=== PATIENT | female | born 1935 | race Caucasian/White ===

== ENCOUNTER 2016-08-05 15:03 | Emergency (ER) | payer OTHER ==
[~2016-08-05] VITALS: Ht 170.2 cm; Wt 83.1 kg
[~2016-08-05 15:03] MED LIST: AMARYL1 MG PO; AMARYL2 MG PO; AMLODIPINE BESY10 MG PO; ASPIRIN81 M2 PO; ATARAX,VISTARIL25 MG PO; ATIVAN1 MG PO; AVAPRO300 MG PO; BUMETANIDE0.5 M1 PO; BUMETANIDE0.5 MG PO; BUMEX0.5 MG PO; CIPRO500 MG PO; CLONIDINE HCL0.1 MG PO; COUMADIN,JANTO2.5 MG PO; COUMADIN,JANTOVE5 MG PO; Coumadin,Jantoven PO; DIGOX125 MCG PO; DIGOX250 MCG PO; DIGOXIN125 MCG PO; ELIQUIS5 MG PO; FLEXERIL10 MG PO; GLUCOPHAGE1000 MG PO; K-DUR10 ME1 PO; KLOR-CON M1010 MEQ PO; LANOXIN,DIGIT0.25 MG PO; LISINOPRIL10 MG PO; LOVAZA1 GM PO; METFORMIN HCL1000 M1 PO; METFORMIN HCL1000 MG PO; METOPROLOL SUC100 MG PO; METOPROLOL SUCC25 MG PO; NORCO 5/3251 TABLET PO; NORVASC2.5 MG PO; OMEGA-3 ACID ETH1 GM PO; OXAZEPAM15 MG PO; PERCOCET 5/31 TABLET PO; PRADAXA75 MG PO; PREDNISONE10 MG PO; PROCARDIA XL90 MG PO; PROTONIX40 MG PO; SERAX15 MG PO; TOPROL XL100 MG PO; TOPROL XL50 MG PO; ULTRAM50 MG PO; VICODIN 5-3001 EACH PO; WARFARIN SODIUM5 MG; WELCHOL625 MG PO; ZESTRIL10 MG PO; Zyvox PO
[2016-08-05] MEDS ORDERED: TYLENOL WITH C1 EACH PO (18:15)
[2016-08-05] MEDS ORDERED: MOTRIN400 MG PO (18:16)
[2016-08-05 18:41] VITALS: BP 158/85
== END 2016-08-05 18:42 | disposition home or self-care (01) ==
LOC: EME 15:03
DX: S46.911A Strain of unspecified muscle, fascia and tendon at shoulder and upper arm level, right arm, initial encounter (principal); M54.2 Cervicalgia; X50.9XXA Other and unspecified overexertion or strenuous movements or postures, initial encounter; I10 Essential (primary) hypertension; E11.9 Type 2 diabetes mellitus without complications; Z79.01 Long term (current) use of anticoagulants; Z87.891 Personal history of nicotine dependence
CPT/HCPCS: 73030; 99281; 99284

== ENCOUNTER 2017-01-13 16:07 | Emergency (ER) | payer OTHER ==
[~2017-01-13] VITALS: Ht 165.1 cm; Wt 83.1 kg
[~2017-01-13 16:07] MED LIST changes: +MOTRIN400 MG PO; +TYLENOL WITH C1 EACH PO
[2017-01-13 17:28] LABS: ADD MIUA? YES; BILIRUBIN NEGATIVE; BLOOD SMALL; COLOR YELLOW ((YELLOW)); GLUCOSE (STRIP) NEGATIVE; KETONES NEGATIVE; LEUKOCYTES NEGATIVE; NITRITE NEGATIVE; PROTEIN (STRIP) 30; SPECIFIC GRAVITY 1.015 (1.000-1.030)
[2017-01-13 17:33] LABS: BACTERIA NONE SEEN /HPF; EPITHELIAL CELLS 1+ /HPF; MUCUS TRACE /LPF; RED BLOOD CELLS 0-5 /HPF (0-5); UCUL ADDED? NO; WHITE BLOOD CELLS 0-5 /HPF (0-5)
[2017-01-13 18:19] LABS: EOSINOPHIL (%) 0.7 % (0-5); HEMATOCRIT 38.9 % (36.0-46.0); IMMATURE GRANULOCYTE (%) 0.2 % (0.0-0.7); INSTRUMENT ABS NEUTROPHIL CT 3.2 K/uL; LYMPHOCYTE COUNT 1.9 K/uL (1.0-2.8); MCH 31.4 PG (29.0-34.0); MCHC 33.9 G/DL (30.0-36.0); MCV 92.6 FL (83-99); MEAN PLAT.VOLUME 10.5 uM^3 (9.5-12.4); MONOCYTE (%) 7.1 % (3-12); MONOCYTE COUNT 0.4 K/uL (0-0.8); NEUTROPHIL (%) 57.1 % (45-76); NEUTROPHIL COUNT 3.2 K/uL (1.8-6.4); PLATELET COUNT 135 K/uL (156-360); RBC DIS.WIDTH-CV 12.5 % (11.8-14.6); RBC DIS.WIDTH-SD 42.5 % (39-53); WHITE BLOOD COUNT 5.5 K/uL (4.1-10.2)
[2017-01-13 18:45] LABS: CHLORIDE 104 mEq/L (99-109); POTASSIUM 4.3 mEq/L (3.7-5.4); SODIUM 141 mEq/L (136-147)
[2017-01-13 18:47] LABS: GLUCOSE 97 mg/dL (70-99)
[2017-01-13 18:48] LABS: ANION GAP 14 MEQ/L (2-14)
[2017-01-13 18:51] LABS: GFR ESTIMATE (CALCULATED) 57 mL/min/
[2017-01-13 18:52] LABS: UREA NITROGEN (BUN) 17 mg/dL (9-23)
[2017-01-13 18:59] LABS: DIGOXIN < 0.3 ng/mL (0.8-2.0)
[2017-01-13] MEDS ORDERED: ULTRAM50 MG PO (19:12)
[2017-01-13 19:55] VITALS: BP 170/98
== END 2017-01-13 19:55 | disposition home or self-care (01) ==
LOC: EME 16:07
PROVIDERS: Physician Assistant
DX: E11.42 Type 2 diabetes mellitus with diabetic polyneuropathy (principal); E11.622 Type 2 diabetes mellitus with other skin ulcer; L97.819 Non-pressure chronic ulcer of other part of right lower leg with unspecified severity; Z79.84 Long term (current) use of oral hypoglycemic drugs; I11.0 Hypertensive heart disease with heart failure; I50.9 Heart failure, unspecified; I48.91 Unspecified atrial fibrillation; Z79.01 Long term (current) use of anticoagulants; J45.909 Unspecified asthma, uncomplicated; K21.9 Gastro-esophageal reflux disease without esophagitis; F32.9 Major depressive disorder, single episode, unspecified; F41.9 Anxiety disorder, unspecified; Z85.038 Personal history of other malignant neoplasm of large intestine; Z90.710 Acquired absence of both cervix and uterus; Z87.891 Personal history of nicotine dependence
CPT/HCPCS: 80048; 80162; 81003; 83880; 85025; 99281; 99284

== ENCOUNTER 2017-03-08 21:19 | Inpatient (IN) | payer OTHER ==
[~2017-03-08] VITALS: Ht 170.2 cm; Wt 88.1 kg
[~2017-03-08 21:19] MED LIST changes: -ZESTRIL10 MG PO; +ZESTRIL20 MG PO
[2017-03-08 22:49] LABS: HEMATOCRIT 37.7 % (36.0-46.0); MCH 31.4 PG (29.0-34.0); MCHC 33.2 G/DL (30.0-36.0); MCV 94.7 FL (83-99); MEAN PLAT.VOLUME 9.7 uM^3 (9.5-12.4); PLATELET COUNT 132 K/uL (156-360); RBC DIS.WIDTH-CV 12.8 % (11.8-14.6); RED BLOOD COUNT 3.98 M/uL (3.80-5.20); WHITE BLOOD COUNT 8.4 K/uL (4.1-10.2)
[2017-03-08 22:56] LABS: CHLORIDE 108 mEq/L (99-109); POTASSIUM 4.1 mEq/L (3.7-5.4); SODIUM 140 mEq/L (136-147)
[2017-03-08 22:57] LABS: GLUCOSE 170 mg/dL (70-99)
[2017-03-08 22:59] LABS: ANION GAP 12 MEQ/L (2-14)
[2017-03-08 23:00] LABS: INTER. NORMALIZED RATIO 1.3; PROTHROMBIN TIME 14.7 SEC (10.2-12.9)
[2017-03-08 23:01] LABS: GFR ESTIMATE (CALCULATED) > 59 mL/min/
[2017-03-08 23:02] LABS: UREA NITROGEN (BUN) 19 mg/dL (9-23)
[2017-03-08] MEDS ORDERED: TOPROL XL25 MG PO (23:44)
[2017-03-08] MEDS ORDERED: ASPIR 8181 M1 PO (23:44)
[2017-03-08] MEDS ORDERED: NIFEDIPINE ER90 MG PO (23:44)
[2017-03-08] MEDS ORDERED: KLOR-CON M1010 MEQ PO (23:46)
[2017-03-08] MEDS ORDERED: REPAGLINIDE0.5 MG PO (23:46)
[2017-03-08] MEDS ORDERED: VERAPAMIL SR240 MG PO (23:46)
[2017-03-09] VITALS (24 sets, daily range): BP systolic 139–196; BP diastolic 46–89
[2017-03-09 02:45] LABS: METH RESISTANT S AUREUS PCR NEGATIVE (NEGATIVE); PROBE CHECK PASS; SPECIMEN PROCESSING CONTROL PASS
[2017-03-09 06:01] LABS: HEMATOCRIT 34.5 % (36.0-46.0); MCH 31.8 PG (29.0-34.0); MCHC 33.3 G/DL (30.0-36.0); MCV 95.3 FL (83-99); MEAN PLAT.VOLUME 10.4 uM^3 (9.5-12.4); PLATELET COUNT 133 K/uL (156-360); RBC DIS.WIDTH-CV 12.8 % (11.8-14.6); RBC DIS.WIDTH-SD 44.3 % (39-53); RED BLOOD COUNT 3.62 M/uL (3.80-5.20); WHITE BLOOD COUNT 6.6 K/uL (4.1-10.2)
[2017-03-09 06:29] LABS: ALKALINE PHOSPHATASE 75 IU/L (3-129); ANION GAP 8 MEQ/L (2-14); CHLORIDE 107 MEQ/L (99-109); GFR ESTIMATE (CALCULATED) > 59 mL/min/; GLUCOSE 150 mg/dL (70-99); POTASSIUM 4.9 MEQ/L (3.7-5.4); SAMPLE HEMOLYSIS CHECK 0; SAMPLE ICTERIC CHECK 0; SAMPLE LIPEMIA CHECK 0; SODIUM 141 MEQ/L (136-147); TOTAL BILIRUBIN 1.3 MG/DL (0.0-1.0); UREA NITROGEN (BUN) 18 mg/dL (9-23)
[2017-03-09 10:04] LABS: INTER. NORMALIZED RATIO 1.1; PROTHROMBIN TIME 12.3 SEC (10.2-12.9)
[2017-03-09 10:05] LABS: PTT 29.4 SEC (25-37)
[2017-03-09 12:06] LABS: POINT-OF-CARE METER ID UU13113731
[2017-03-09 17:54] LABS: POINT-OF-CARE METER ID UU13113731
[2017-03-10] VITALS (9 sets, daily range): BP systolic 138–180; BP diastolic 53–82
[2017-03-10 02:05] LABS: POINT-OF-CARE METER ID UU14208751; POINT-OF-CARE USER ID PHATLC
[2017-03-10 05:40] LABS: EOSINOPHIL COUNT 0.1 K/uL (0-0.3); HEMATOCRIT 33.2 % (36.0-46.0); IMMATURE GRANULOCYTE (%) 0.3 % (0.0-0.7); INSTRUMENT ABS NEUTROPHIL CT 3.7 K/uL; LYMPHOCYTE COUNT 1.8 K/uL (1.0-2.8); MCH 32.3 PG (29.0-34.0); MCHC 33.7 G/DL (30.0-36.0); MCV 95.7 FL (83-99); MEAN PLAT.VOLUME 10.1 uM^3 (9.5-12.4); MONOCYTE (%) 7.6 % (3-12); MONOCYTE COUNT 0.5 K/uL (0-0.8); NEUTROPHIL COUNT 3.7 K/uL (1.8-6.4); PLATELET COUNT 115 K/uL (156-360); RBC DIS.WIDTH-CV 13.1 % (11.8-14.6); RBC DIS.WIDTH-SD 45.6 % (39-53); RED BLOOD COUNT 3.47 M/uL (3.80-5.20)
[2017-03-10 06:04] LABS: ANION GAP 8 MEQ/L (2-14); CHLORIDE 108 MEQ/L (99-109); GFR ESTIMATE (CALCULATED) > 59 mL/min/; GLUCOSE 120 mg/dL (70-99); MAGNESIUM 1.8 mg/dl (1.3-2.7); SAMPLE HEMOLYSIS CHECK 0; SAMPLE ICTERIC CHECK 0; SAMPLE LIPEMIA CHECK 0; SODIUM 142 MEQ/L (136-147); UREA NITROGEN (BUN) 17 mg/dL (9-23)
[2017-03-10 09:01] LABS: POINT-OF-CARE METER ID UU14208751
[2017-03-10 16:35] LABS: POINT-OF-CARE METER ID UU14188577
[2017-03-10 23:41] LABS: POINT-OF-CARE METER ID UU14188577
[2017-03-11 03:53] VITALS: BP 139/63
[2017-03-11 07:00] LABS: POINT-OF-CARE METER ID UU14117124
[2017-03-11 08:31] VITALS: BP 162/74
[2017-03-11 11:40] LABS: POINT-OF-CARE METER ID UU14188577
[2017-03-11 12:04] VITALS: BP 156/58
[2017-03-11] MEDS ORDERED: TYLENOL WITH C1 EACH PO (14:57)
[2017-03-11 16:37] VITALS: BP 137/65
[2017-03-11 16:47] LABS: POINT-OF-CARE METER ID UU14188577
== END 2017-03-11 19:51 | disposition home health service (06) | DRG 963 ==
LOC: EME → EDBD 21:19 → EDOF 23:21 → 4WEST 23:21 → ENRESERV 23:22 → 4WEST 03-09 01:08 → ENRESERV 03-10 07:06 → 3EAST 03-10 12:08
PROVIDERS: Emergency Medicine; Internal Medicine Critical Care Medicine; Specialist; Student in an Organized Health Care Education/Training Program
DX: S06.6X0A Traumatic subarachnoid hemorrhage without loss of consciousness, initial encounter (principal); S01.01XA Laceration without foreign body of scalp, initial encounter; S32.10XA Unspecified fracture of sacrum, initial encounter for closed fracture; W01.0XXA Fall on same level from slipping, tripping and stumbling without subsequent striking against object, initial encounter; G93.6 Cerebral edema; I16.0 Hypertensive urgency; I10 Essential (primary) hypertension; I48.2 Chronic atrial fibrillation; E11.9 Type 2 diabetes mellitus without complications; E78.5 Hyperlipidemia, unspecified; J45.909 Unspecified asthma, uncomplicated; K21.9 Gastro-esophageal reflux disease without esophagitis; R00.1 Bradycardia, unspecified; M85.80 Other specified disorders of bone density and structure, unspecified site; M54.5 Low back pain; M19.90 Unspecified osteoarthritis, unspecified site; F41.9 Anxiety disorder, unspecified; F32.9 Major depressive disorder, single episode, unspecified; Z79.01 Long term (current) use of anticoagulants; Z85.038 Personal history of other malignant neoplasm of large intestine; Z86.73 Personal history of transient ischemic attack (TIA), and cerebral infarction without residual deficits; Z87.891 Personal history of nicotine dependence
CPT/HCPCS: 70450; 72131; 80048; 80053; 80162; 82948; 83735; 84100; 85025; 85027; 85610; 85730; 87641; 99281; 99285; C9132; J1815; J7050

== ENCOUNTER 2017-07-19 15:07 | Emergency (ER) | payer OTHER ==
[~2017-07-19] VITALS: Ht 170.2 cm; Wt 90.3 kg
[~2017-07-19 15:07] MED LIST changes: +ASPIR 8181 M1 PO; +NIFEDIPINE ER90 MG PO; +REPAGLINIDE0.5 MG PO; +TOPROL XL25 MG PO; +VERAPAMIL SR240 MG PO
[2017-07-19 17:13] LABS: HEMATOCRIT 38.5 % (36.0-46.0); HEMOGLOBIN 12.9 G/DL (11.9-15.5); MCHC 33.5 G/DL (30.0-36.0); MCV 92.5 FL (83-99); PLATELET COUNT 186 K/uL (156-360); RBC DIS.WIDTH-CV 13.3 % (11.8-14.6); RBC DIS.WIDTH-SD 45.2 % (39-53); RED BLOOD COUNT 4.16 M/uL (3.80-5.20); WHITE BLOOD COUNT 9.8 K/uL (4.1-10.2)
[2017-07-19 17:22] LABS: CHLORIDE 104 mEq/L (99-109); POTASSIUM 4.5 mEq/L (3.7-5.4); SODIUM 133 mEq/L (136-147)
[2017-07-19 17:23] LABS: GLUCOSE 156 mg/dL (70-99)
[2017-07-19 17:27] LABS: CREATININE 2.1 mg/dL (0.6-1.3); GFR ESTIMATE (CALCULATED) 24 mL/min/
[2017-07-19 17:28] LABS: UREA NITROGEN (BUN) 39 mg/dL (9-23)
[2017-07-19 21:43] LABS: TROP-I INTERPRETATION NEGATIVE; TROPONIN-I < 0.01 ng/mL (0.0-0.30)
[2017-07-19 22:45] LABS: APPEARANCE CLOUDY ((CLEAR)); BILIRUBIN SMALL; BLOOD NEGATIVE; COLOR AMBER ((YELLOW)); GLUCOSE (STRIP) 50; KETONES NEGATIVE; LEUKOCYTES SMALL; NITRITE NEGATIVE; PROTEIN (STRIP) 30; SPECIFIC GRAVITY 1.025 (1.000-1.030)
[2017-07-19 23:04] LABS: RED BLOOD CELLS NONE SEEN /HPF (0-5); WHITE BLOOD CELLS 20-30 /HPF (0-5)
[2017-07-19 23:05] LABS: BACTERIA 2+ /HPF; EPITHELIAL CELLS 2+ /HPF; MUCUS RARE /LPF; UCUL ADDED? YES
[2017-07-19 23:06] LABS: AMORPHOUS URATES CRYSTALS 1+; CALCIUM OXALATE CRYSTALS 1+ /HPF; HYALINE CASTS RARE /LPF
[2017-07-19] MEDS ORDERED: KEFLEX500 MG PO (23:32)
[2017-07-20 00:34] VITALS: BP 117/67
== END 2017-07-20 00:38 | disposition home or self-care (01) ==
LOC: EME 15:07
PROVIDERS: Emergency Medicine
DX: N39.0 Urinary tract infection, site not specified (principal); E86.0 Dehydration; I10 Essential (primary) hypertension; K21.9 Gastro-esophageal reflux disease without esophagitis; J45.909 Unspecified asthma, uncomplicated; M19.90 Unspecified osteoarthritis, unspecified site; F41.9 Anxiety disorder, unspecified; F32.9 Major depressive disorder, single episode, unspecified; Z87.891 Personal history of nicotine dependence; Z79.01 Long term (current) use of anticoagulants; Z86.73 Personal history of transient ischemic attack (TIA), and cerebral infarction without residual deficits; Z85.038 Personal history of other malignant neoplasm of large intestine; Z90.49 Acquired absence of other specified parts of digestive tract; Z88.5 Allergy status to narcotic agent
CPT/HCPCS: 70450; 71046; 80048; 81003; 83880; 84484; 85027; 87086; 93005; 99281; 99285; J0696; J7030

== ENCOUNTER 2017-08-29 20:33 | Inpatient (IN) | payer OTHER ==
[~2017-08-29] VITALS: Ht 170.2 cm; Wt 82.4 kg
[~2017-08-29 20:33] MED LIST changes: +KEFLEX500 MG PO
[2017-08-29 21:21] LABS: HEMATOCRIT 46.2 % (36.0-46.0); HEMOGLOBIN 16.1 G/DL (11.9-15.5); MCH 30.7 PG (29.0-34.0); MCHC 34.8 G/DL (30.0-36.0); MCV 88.2 FL (83-99); RBC DIS.WIDTH-CV 12.9 % (11.8-14.6); RBC DIS.WIDTH-SD 42.1 % (39-53); RED BLOOD COUNT 5.24 M/uL (3.80-5.20)
[2017-08-29 21:22] LABS: INTER. NORMALIZED RATIO 1.3
[2017-08-29 21:23] LABS: ALBUMIN 3.5 g/dL (3.2-4.8); CHLORIDE 100 mEq/L (99-109); POTASSIUM 3.2 mEq/L (3.7-5.4); SODIUM 136 mEq/L (136-147)
[2017-08-29 21:24] LABS: MAGNESIUM 1.6 mg/dL (1.3-2.7)
[2017-08-29 21:25] LABS: PTT 25.5 SEC (25-37)
[2017-08-29 21:26] LABS: GLUCOSE 198 mg/dL (70-99); TOTAL PROTEIN 6.8 g/dL (6.4-8.3)
[2017-08-29 21:28] LABS: TOTAL BILIRUBIN 2.6 mg/dL (0.0-1.0)
[2017-08-29 21:29] LABS: ALKALINE PHOSPHATASE 116 IU/L (3-129)
[2017-08-29 21:30] LABS: CREATININE 1.1 mg/dL (0.6-1.3); GFR ESTIMATE (CALCULATED) 51 mL/min/
[2017-08-29 21:31] LABS: AST (GOT) 31 IU/L (2-34); UREA NITROGEN (BUN) 27 mg/dL (9-23)
[2017-08-29 21:32] LABS: ALT (GPT) 39 IU/L (3-49)
[2017-08-29 21:33] LABS: LIPASE 15 U/L (1.0-51.0)
[2017-08-29 21:40] LABS: DIGOXIN < 0.3 ng/mL (0.8-2.0)
[2017-08-29 21:41] LABS: TROP-I INTERPRETATION NEGATIVE; TROPONIN-I 0.03 ng/mL (0.0-0.30)
[2017-08-29 22:08] LABS: ABS NEUTROPHIL COUNT 8.7; ANISOCYTOSIS 1+; ATYPICAL LYMPHOCYTE 14.8 %; BAND NEUTROPHILS 54.8 % (0-8.0); EOSINOPHIL ABS CT 0; LYMPHOCYTES 3.5 % (15.0-45.0); METAMYELOCYTES 3.5 %; MICROCYTOSIS 1+; MONOCYTES 11.3 % (0-9.0); PLAT.SUFFICIENCY ADEQUATE; PLATELET COUNT 186 K/uL (156-360); SEG.NEUTROPHILS 12.1 % (46.0-76.0)
[2017-08-29 23:13] LABS: APPEARANCE SL.HAZY ((CLEAR)); BILIRUBIN NEGATIVE; BLOOD SMALL; COLOR AMBER ((YELLOW)); GLUCOSE (STRIP) 50; KETONES NEGATIVE; LEUKOCYTES NEGATIVE; NITRITE NEGATIVE; PROTEIN (STRIP) 30; SPECIFIC GRAVITY 1.023 (1.000-1.030)
[2017-08-29 23:25] LABS: BACTERIA 3+ /HPF; EPITHELIAL CELLS RARE /HPF; MUCUS 2+ /LPF; RED BLOOD CELLS 0-5 /HPF (0-5); UCUL ADDED? YES
[2017-08-30] MEDS ORDERED: VERAPAMIL HCL360 MG PO (00:31)
[2017-08-30] MEDS ORDERED: DIGOXIN125 MCG PO (00:32)
[2017-08-30] MEDS ORDERED: LISINOPRIL20 MG PO (00:32)
[2017-08-30] MEDS ORDERED: BUMEX0.5 MG PO (00:33)
[2017-08-30 03:33] VITALS: BP 168/70
[2017-08-30 03:39] VITALS: BP 168/70
[2017-08-30 06:42] LABS: HEMATOCRIT 39.6 % (36.0-46.0); MCHC 33.6 G/DL (30.0-36.0); MCV 89.2 FL (83-99); PLATELET COUNT 140 K/uL (156-360); RBC DIS.WIDTH-SD 42.7 % (39-53); RED BLOOD COUNT 4.44 M/uL (3.80-5.20); WHITE BLOOD COUNT 9.5 K/uL (4.1-10.2)
[2017-08-30 06:45] LABS: HEMOGLOBIN 13.3 G/DL (11.9-15.5)
[2017-08-30 06:49] LABS: ALBUMIN 2.7 G/DL (3.2-4.8); ALKALINE PHOSPHATASE 84 IU/L (3-129); ALT (GPT) 29 IU/L (3-49); AST (GOT) 28 IU/L (2-34); CHLORIDE 105 MEQ/L (99-109); GFR ESTIMATE (CALCULATED) 56 mL/min/; GLUCOSE 135 mg/dL (70-99); POTASSIUM 3.5 MEQ/L (3.7-5.4); SODIUM 136 MEQ/L (136-147); TOTAL BILIRUBIN 1.9 MG/DL (0.0-1.0); TOTAL PROTEIN 4.8 G/DL (6.4-8.3); UREA NITROGEN (BUN) 25 mg/dL (9-23)
[2017-08-30 07:13] VITALS: BP 167/76
[2017-08-30 15:31] VITALS: BP 132/61
[2017-08-30 16:00] LABS: C DIFF TOXIN NEGATIVE (NEGATIVE)
[2017-08-30 20:00] VITALS: BP 135/78
[2017-08-30 23:45] VITALS: BP 147/65
[2017-08-31 07:03] LABS: HEMATOCRIT 35.5 % (36.0-46.0); HEMOGLOBIN 11.7 G/DL (11.9-15.5); MCH 30.2 PG (29.0-34.0); MCV 91.5 FL (83-99); PLATELET COUNT 154 K/uL (156-360); RBC DIS.WIDTH-CV 13.2 % (11.8-14.6); RBC DIS.WIDTH-SD 44.4 % (39-53); RED BLOOD COUNT 3.88 M/uL (3.80-5.20); WHITE BLOOD COUNT 10.7 K/uL (4.1-10.2)
[2017-08-31 07:19] VITALS: BP 129/62
[2017-08-31 07:28] LABS: CHLORIDE 106 MEQ/L (99-109); CREATININE 0.9 MG/DL (0.6-1.3); GFR ESTIMATE (CALCULATED) > 59 mL/min/; GLUCOSE 132 mg/dL (70-99); MAGNESIUM 1.5 mg/dl (1.3-2.7); POTASSIUM 3.1 MEQ/L (3.7-5.4); SODIUM 136 MEQ/L (136-147); UREA NITROGEN (BUN) 21 mg/dL (9-23)
[2017-08-31 15:33] VITALS: BP 143/66
[2017-08-31 21:52] VITALS: BP 139/64
[2017-08-31 22:25] VITALS: BP 137/65
[2017-09-01 06:30] LABS: HEMATOCRIT 33.9 % (36.0-46.0); HEMOGLOBIN 11.3 G/DL (11.9-15.5); MCH 31.3 PG (29.0-34.0); MCHC 33.3 G/DL (30.0-36.0); MCV 93.9 FL (83-99); PLATELET COUNT 144 K/uL (156-360); RBC DIS.WIDTH-CV 13.4 % (11.8-14.6); RED BLOOD COUNT 3.61 M/uL (3.80-5.20); WHITE BLOOD COUNT 7.8 K/uL (4.1-10.2)
[2017-09-01 06:51] LABS: CHLORIDE 108 MEQ/L (99-109); CREATININE 0.9 MG/DL (0.6-1.3); GFR ESTIMATE (CALCULATED) > 59 mL/min/; GLUCOSE 120 mg/dL (70-99); POTASSIUM 3.4 MEQ/L (3.7-5.4); SODIUM 136 MEQ/L (136-147); UREA NITROGEN (BUN) 24 mg/dL (9-23)
[2017-09-01 07:55] VITALS: BP 118/54
[2017-09-01 15:49] VITALS: BP 117/53
[2017-09-01 23:55] VITALS: BP 123/62
[2017-09-01 23:56] VITALS: BP 123/62
[2017-09-02 06:19] LABS: HEMOGLOBIN 10.9 G/DL (11.9-15.5); MCH 29.9 PG (29.0-34.0); MCHC 32.1 G/DL (30.0-36.0); MCV 93.4 FL (83-99); PLATELET COUNT 163 K/uL (156-360); RBC DIS.WIDTH-CV 13.4 % (11.8-14.6); RBC DIS.WIDTH-SD 45.8 % (39-53); RED BLOOD COUNT 3.64 M/uL (3.80-5.20); WHITE BLOOD COUNT 8.7 K/uL (4.1-10.2)
[2017-09-02 06:41] LABS: CHLORIDE 112 MEQ/L (99-109); CREATININE 1.3 MG/DL (0.6-1.3); GFR ESTIMATE (CALCULATED) 42 mL/min/; GLUCOSE 120 mg/dL (70-99); MAGNESIUM 1.6 mg/dl (1.3-2.7); POTASSIUM 3.6 MEQ/L (3.7-5.4); SODIUM 137 MEQ/L (136-147); UREA NITROGEN (BUN) 29 mg/dL (9-23)
[2017-09-02 06:44] LABS: ABS NEUTROPHIL COUNT 6.9; ANISOCYTOSIS 1+; ATYPICAL LYMPHOCYTE 1.7 %; BASOPHILS 0.9 %; EOSINOPHIL ABS CT 0; LYMPHOCYTES 12.3 % (15.0-45.0); METAMYELOCYTES 0.9 %; MICROCYTOSIS 1+; MONOCYTES 2.6 % (0-9.0); MYELOCYTES 1.8 %; PLAT.SUFFICIENCY ADEQUATE; SMUDGE CELLS 6.1
[2017-09-02 06:54] LABS: BAND NEUTROPHILS 4.4 % (0-8.0); SEG.NEUTROPHILS 75.4 % (46.0-76.0)
[2017-09-02 07:49] VITALS: BP 126/60
[2017-09-02 15:27] VITALS: BP 143/66
[2017-09-02 23:28] VITALS: BP 138/65
[2017-09-03 06:42] LABS: CHLORIDE 114 MEQ/L (99-109); CREATININE 1.2 MG/DL (0.6-1.3); GFR ESTIMATE (CALCULATED) 46 mL/min/; GLUCOSE 121 mg/dL (70-99); MAGNESIUM 1.6 mg/dl (1.3-2.7); POTASSIUM 3.9 MEQ/L (3.7-5.4); SODIUM 140 MEQ/L (136-147); UREA NITROGEN (BUN) 30 mg/dL (9-23)
[2017-09-03 08:12] VITALS: BP 131/59
[2017-09-03 15:39] VITALS: BP 130/62
[2017-09-04 00:10] VITALS: BP 168/70
[2017-09-04 06:59] VITALS: BP 160/68
[2017-09-04 11:37] VITALS: BP 152/60
[2017-09-04 15:27] VITALS: BP 136/61
[2017-09-05 00:25] VITALS: BP 150/69
[2017-09-05 06:20] LABS: BASOPHIL (%) 0.7 % (0-1); BASOPHIL COUNT 0.1 K/uL (0-0.1); EOSINOPHIL (%) 0.4 % (0-5); HEMATOCRIT 37.6 % (36.0-46.0); IMMATURE GRANULOCYTE (%) 3.3 % (0.0-0.7); LYMPHOCYTE (%) 11.5 % (15-42); LYMPHOCYTE COUNT 1.3 K/uL (1.0-2.8); MCH 29.8 PG (29.0-34.0); MCHC 31.9 G/DL (30.0-36.0); MCV 93.3 FL (83-99); MONOCYTE (%) 7.1 % (3-12); MONOCYTE COUNT 0.8 K/uL (0-0.8); NEUTROPHIL COUNT 8.8 K/uL (1.8-6.4); RBC DIS.WIDTH-CV 13.6 % (11.8-14.6); RBC DIS.WIDTH-SD 46.5 % (39-53); RED BLOOD COUNT 4.03 M/uL (3.80-5.20); WHITE BLOOD COUNT 11.4 K/uL (4.1-10.2)
[2017-09-05 06:43] LABS: PLATELET COUNT 243 K/uL (156-360)
[2017-09-05 06:54] LABS: CHLORIDE 112 MEQ/L (99-109); CREATININE 1.1 MG/DL (0.6-1.3); GFR ESTIMATE (CALCULATED) 51 mL/min/; GLUCOSE 99 mg/dL (70-99); SODIUM 137 MEQ/L (136-147); UREA NITROGEN (BUN) 23 mg/dL (9-23)
[2017-09-05 07:22] VITALS: BP 118/60
[2017-09-05 10:59] VITALS: BP 118/58
[2017-09-05 15:40] VITALS: BP 122/56
[2017-09-05 23:00] VITALS: BP 124/57
[2017-09-06 07:45] LABS: BASOPHIL (%) 0.5 % (0-1); EOSINOPHIL (%) 0.3 % (0-5); HEMOGLOBIN 11.5 G/DL (11.9-15.5); IMMATURE GRANULOCYTE (%) 4.9 % (0.0-0.7); LYMPHOCYTE (%) 14.3 % (15-42); LYMPHOCYTE COUNT 0.9 K/uL (1.0-2.8); MCHC 31.9 G/DL (30.0-36.0); MONOCYTE (%) 7.4 % (3-12); MONOCYTE COUNT 0.5 K/uL (0-0.8); NEUTROPHIL (%) 72.6 % (45-76); NEUTROPHIL COUNT 4.7 K/uL (1.8-6.4); PLATELET COUNT 199 K/uL (156-360); RBC DIS.WIDTH-SD 47.8 % (39-53); RED BLOOD COUNT 3.83 M/uL (3.80-5.20); WHITE BLOOD COUNT 6.5 K/uL (4.1-10.2)
[2017-09-06 08:00] VITALS: BP 104/50
[2017-09-06 08:09] LABS: CHLORIDE 111 MEQ/L (99-109); CREATININE 1.4 MG/DL (0.6-1.3); GFR ESTIMATE (CALCULATED) 38 mL/min/; GLUCOSE 108 mg/dL (70-99); POTASSIUM 3.7 MEQ/L (3.7-5.4); SODIUM 138 MEQ/L (136-147); UREA NITROGEN (BUN) 32 mg/dL (9-23)
[2017-09-06 15:45] VITALS: BP 110/50
[2017-09-06 23:45] VITALS: BP 127/60
[2017-09-07 07:10] LABS: HEMATOCRIT 36.5 % (36.0-46.0); HEMOGLOBIN 11.6 G/DL (11.9-15.5); MCH 29.7 PG (29.0-34.0); MCHC 31.8 G/DL (30.0-36.0); MCV 93.6 FL (83-99); PLATELET COUNT 208 K/uL (156-360); RBC DIS.WIDTH-CV 14.1 % (11.8-14.6); RBC DIS.WIDTH-SD 48.2 % (39-53); WHITE BLOOD COUNT 5.8 K/uL (4.1-10.2)
[2017-09-07 07:15] VITALS: BP 131/60
[2017-09-07 07:33] LABS: CHLORIDE 111 MEQ/L (99-109); CREATININE 1.5 MG/DL (0.6-1.3); GFR ESTIMATE (CALCULATED) 35 mL/min/; GLUCOSE 102 mg/dL (70-99); POTASSIUM 4.1 MEQ/L (3.7-5.4); SODIUM 138 MEQ/L (136-147); UREA NITROGEN (BUN) 34 mg/dL (9-23)
[2017-09-07 07:48] LABS: ANISOCYTOSIS 1+; PLAT.SUFFICIENCY ADEQUATE; PLATELET CLUMPS PRESENT - PLATELET COUNT APPEARS ADQ.
[2017-09-07 07:57] LABS: ABS NEUTROPHIL COUNT 4.5; ATYPICAL LYMPHOCYTE 2.7 %; BAND NEUTROPHILS 8.8 % (0-8.0); EOSINOPHIL ABS CT 0; METAMYELOCYTES 1.8 %; MONOCYTES 9.7 % (0-9.0)
[2017-09-07 15:28] VITALS: BP 117/58
[2017-09-07 23:05] VITALS: BP 123/62
[2017-09-08 07:00] VITALS: BP 121/58
[2017-09-08 07:02] LABS: BASOPHIL (%) 0.7 % (0-1); EOSINOPHIL (%) 0.5 % (0-5); HEMATOCRIT 32.8 % (36.0-46.0); HEMOGLOBIN 10.7 G/DL (11.9-15.5); IMMATURE GRANULOCYTE (%) 4.1 % (0.0-0.7); LYMPHOCYTE (%) 19.1 % (15-42); LYMPHOCYTE COUNT 1.1 K/uL (1.0-2.8); MCH 30.2 PG (29.0-34.0); MCHC 32.6 G/DL (30.0-36.0); MCV 92.7 FL (83-99); MONOCYTE COUNT 0.5 K/uL (0-0.8); NEUTROPHIL (%) 67.6 % (45-76); NEUTROPHIL COUNT 3.8 K/uL (1.8-6.4); PLATELET COUNT 194 K/uL (156-360); RBC DIS.WIDTH-SD 47.8 % (39-53); RED BLOOD COUNT 3.54 M/uL (3.80-5.20); WHITE BLOOD COUNT 5.6 K/uL (4.1-10.2)
[2017-09-08 07:19] LABS: CHLORIDE 112 MEQ/L (99-109); CREATININE 1.4 MG/DL (0.6-1.3); GFR ESTIMATE (CALCULATED) 38 mL/min/; GLUCOSE 95 mg/dL (70-99); PHOSPHORUS 3.6 mg/dL (2.5-4.9); POTASSIUM 3.8 MEQ/L (3.7-5.4); SODIUM 138 MEQ/L (136-147); UREA NITROGEN (BUN) 30 mg/dL (9-23)
[2017-09-08 16:08] VITALS: BP 114/60
[2017-09-08 22:50] VITALS: BP 123/65
[2017-09-09 07:46] VITALS: BP 119/63
[2017-09-09 08:11] LABS: BASOPHIL (%) 0.4 % (0-1); EOSINOPHIL (%) 0.3 % (0-5); HEMATOCRIT 36.9 % (36.0-46.0); HEMOGLOBIN 11.8 G/DL (11.9-15.5); IMMATURE GRANULOCYTE (%) 1.2 % (0.0-0.7); LYMPHOCYTE (%) 11.3 % (15-42); LYMPHOCYTE COUNT 0.8 K/uL (1.0-2.8); MCH 29.9 PG (29.0-34.0); MCV 93.4 FL (83-99); MONOCYTE COUNT 0.4 K/uL (0-0.8); NEUTROPHIL (%) 80.8 % (45-76); NEUTROPHIL COUNT 5.9 K/uL (1.8-6.4); PLATELET COUNT 183 K/uL (156-360); RBC DIS.WIDTH-SD 47.6 % (39-53); RED BLOOD COUNT 3.95 M/uL (3.80-5.20); WHITE BLOOD COUNT 7.4 K/uL (4.1-10.2)
[2017-09-09 08:28] LABS: CHLORIDE 112 MEQ/L (99-109); CREATININE 1.3 MG/DL (0.6-1.3); GFR ESTIMATE (CALCULATED) 42 mL/min/; GLUCOSE 122 mg/dL (70-99); POTASSIUM 3.8 MEQ/L (3.7-5.4); SODIUM 140 MEQ/L (136-147); UREA NITROGEN (BUN) 25 mg/dL (9-23)
[2017-09-09 15:15] VITALS: BP 120/51
[2017-09-10 00:42] VITALS: BP 141/71
[2017-09-10 07:55] VITALS: BP 122/55
[2017-09-10] MEDS ORDERED: CIPROFLOXACIN250 MG PO (13:09)
[2017-09-10] MEDS ORDERED: CALAN SR,COVER180 MG PO (13:10)
[2017-09-10] MEDS ORDERED: BENTYL20 MG PO (13:10)
== END 2017-09-10 16:45 | disposition home health service (06) | DRG 690 ==
LOC: EME 20:33 → EDOF 08-30 01:50 → 2EAST 08-30 01:50 → ENRESERV 08-30 01:56 → 2EAST 08-30 03:15
PROVIDERS: Emergency Medicine; Hospitalist; Internal Medicine; Internal Medicine Gastroenterology; Physician Assistant
DX: N39.0 Urinary tract infection, site not specified (principal); K52.9 Noninfective gastroenteritis and colitis, unspecified; N17.9 Acute kidney failure, unspecified; E87.6 Hypokalemia; E11.9 Type 2 diabetes mellitus without complications; I48.0 Paroxysmal atrial fibrillation; I10 Essential (primary) hypertension; E78.5 Hyperlipidemia, unspecified; I87.8 Other specified disorders of veins; Z85.038 Personal history of other malignant neoplasm of large intestine; Z90.49 Acquired absence of other specified parts of digestive tract; Z79.01 Long term (current) use of anticoagulants; K56.7 Ileus, unspecified; B96.89 Other specified bacterial agents as the cause of diseases classified elsewhere; Z87.891 Personal history of nicotine dependence; Z90.710 Acquired absence of both cervix and uterus
CPT/HCPCS: 74018; 74019; 74176; 80048; 80053; 80069; 80162; 81003; 82948; 83605; 83690; 83735; 83880; 84484; 85025; 85027; 85610; 85730; 87077; 87086; 87177; 87186; 87329; 87493; 87506; 93005; 97530 GO; 97530 GP; 99281; 99285; J0295; J0744; J1815; J2270; J2765; J3480; J7030; J7040; J7050; S0030